=== PATIENT | female | born 1975 | race African-American/Black ===

== ENCOUNTER 2018-11-02 10:35 | Emergency (ER) | payer MEDICAID ==
[2014-03-23 06:14] VITALS: Ht 162.6 cm; Wt 61.4 kg
[~2018-11-02] VITALS: Ht 162.6 cm; Wt 61.4 kg
[~2018-11-02 10:35] MED LIST: HYDROCODON-ACE1 EAC7 PO; IBUPROFEN600 MG PO
[2018-11-02 11:16] LABS: BASOPHILS 0.2 % (0-2); EOSINOPHILS 2.2 % (0-7); HEMATOCRIT 38.4 % (36.0-48.0); HEMOGLOBIN 13.1 g/dL (12-16); IMMATURE GRANULOCYTES 0.1 % (0-5); LYMPHOCYTES 34.7 % (15-50); MCH 32.1 pg (26.0-34.0); MCHC 34.1 g/dL (31.0-37.0); MCV 94.1 fL (80.0-100.0); MEAN PLATELET VOLUME 12.2 fL (7.4-10.4); MONOCYTES 4.3 % (2-11); NEUTROPHILS 58.5 % (40-80); PLATELET COUNT 141 10x3/uL (130-400); RBC 4.08 10x6/uL (4.00-5.40); RDW 14.3 % (11.5-14.5)
[2018-11-02 11:32] LABS: HCG SERUM NEGATIVE (NEGATIVE)
[2018-11-02 11:40] LABS: ALKALINE PHOSPHATASE 87 U/L (46-116); ALT (SGPT) 24 U/L (10-68); BILIRUBIN - TOTAL 0.61 mg/dL (0.2-1.3); CALC OSMOLALITY 279 mosm/kg (275-300); CARBON DIOXIDE 26.6 mmol/L (21.0-32.0); CHLORIDE - SERUM 105 mmol/L (98-107); CREATININE - SERUM 0.8 mg/dL (0.6-1.3); GLUCOSE 98 mg/dL (74-106); POTASSIUM - SERUM 3.7 mmol/L (3.5-5.1); PROTEIN - SERUM 7.9 g/dL (6.4-8.2); SODIUM 141 mmol/L (136-145); UREA NITROGEN 10 mg/dL (7-18); eGFR NON AFRICAN AMERICAN 84 mL/min (90-120)
[2018-11-02 11:46] LABS: HCG - QUANTITATIVE (MATERNAL) 0 mIU/mL
[2018-11-02 13:44] VITALS: BP 136/76
[2018-11-02 15:44] LABS: APPEARANCE HAZY (CLEAR); BILIRUBIN NEGATIVE (NEGATIVE); COLOR YELLOW (YELLOW); GLUCOSE NEGATIVE (NEGATIVE); KETONE NEGATIVE (NEGATIVE); NITRITE NEGATIVE (NEGATIVE); PROTEIN TRACE mg/dL (NEGATIVE); UROBILINOGEN NORMAL (NORMAL)
[2018-11-02 15:45] LABS: RED CELLS - URINE 0-5 /hpf (0-5)
[2018-11-02 15:46] LABS: BACTERIA MANY /hpf (NONE SEEN); MUCUS <1+ /lpf (NONE SEEN)
== END 2018-11-02 13:45 | disposition home or self-care (01) ==
LOC: D.ER 10:35
PROVIDERS: Family Medicine
DX: N93.9 Abnormal uterine and vaginal bleeding, unspecified (principal)

== ENCOUNTER 2020-09-23 06:22 | Emergency (ER) | payer SELFPAY ==
[~2020-09-23] VITALS: Ht 162.6 cm; Wt 55.5 kg
[2020-09-23 06:26] VITALS: Ht 162.6 cm; Wt 55.5 kg
[2020-09-23] MEDS ORDERED: HYDROCODONE-AC1 EAC2 PO (06:50)
[2020-09-23 07:00] VITALS: BP 120/78
== END 2020-09-23 07:02 | disposition home or self-care (01) ==
LOC: D.ER 06:22
DX: S92.502A Displaced unspecified fracture of left lesser toe(s), initial encounter for closed fracture (principal); X58.XXXA Exposure to other specified factors, initial encounter